=== PATIENT | male | born 1950 | race American Indian/Alaskan Native ===

== ENCOUNTER 2018-06-22 11:19 | Emergency (ER) | payer MEDICARE, OTHER ==
--- NOTE | 2018-06-22 11:31 | Emergency Department Report ---
ED General Adult HPI - General Chief complaint: Tube Replacement Stated complaint: REPLACE RECTAL TUBE Time Seen by Provider: 06/22/18 11:30 Source: EMS Mode of arrival: Stretcher Limitations: Physical Limitation, Other - History of Present Illness Initial comments: Patient is a 7-year-old Male who is a care home patient at [facility] who presented today because of this large rectal tube. The patient is nonverbal and has no complaints at this time. Facility just needed to place the rectal to back for the patient - Related Data Previous Rx's Medication Instructions Recorded Last Taken Type clonazePAM [KlonoPIN] 0.5 mg PO HS #7 tablet 02/13/18 Unknown Rx Bisacodyl [Dulcolax suppos] 10 mg NE QDAY PRN #7 supp.rect 05/12/18 Unknown Rx Clopidogrel Bisulfate [Plavix] 75 mg PO DAILY #20 tablet 05/12/18 Unknown Rx Ferrous Sulfate [Iron] 325 mg PO BID #30 tablet 05/12/18 Unknown Rx Finasteride [Proscar] 5 mg PO DAILY #30 tablet 05/12/18 Unknown Rx Mirtazapine [Remeron] 15 mg PO HS #30 tab.rapdis 05/12/18 Unknown Rx QUEtiapine [SEROquel] 50 mg PO BID #60 tablet 05/12/18 Unknown Rx Rivastigmine [Exelon Patch 4.6 mg TD DAILY #30 patch 05/12/18 Unknown Rx 4.6mg/24hr] Sertraline [Zoloft] 100 mg PO DAILY #30 tablet 05/12/18 Unknown Rx Tamsulosin [Flomax] 0.4 mg PO DAILY #30 capsule 05/12/18 Unknown Rx amLODIPine [Norvasc] 10 mg PO DAILY #30 tablet 05/12/18 Unknown Rx clonazePAM [KlonoPIN] 0.5 mg PO QHS PRN #30 tablet 05/12/18 Unknown Rx hydrALAZINE [Apresoline TAB] 50 mg PO TID #60 tab 05/12/18 Unknown Rx oxyCODONE /ACETAMINOPHEN [Percocet 1 tab PO Q6H PRN #20 tablet 05/12/18 Unknown Rx 5/325 mg] AtorvaSTATin [Lipitor] 40 mg PO QHS #30 tablet 06/20/18 Unknown Rx Furosemide [Lasix] 20 mg PO QDAY #7 tablet 06/20/18 Unknown Rx Allergies Allergy/AdvReac Type Severity Reaction Status Date / Time No Known Allergies Allergy Unverified 01/24/18 15:31 ED Review of Systems ROS: Stated complaint: REPLACE RECTAL TUBE Other details as noted in HPI Comment: All other systems reviewed and negative ED Past Medical Hx - Past Medical History Previous Medical History?: Yes Hx Hypertension: Yes Hx CVA: Yes Hx Dementia: Yes Additional medical history: PVD, anxiety, Benign prostatic hyperplasia, Major deprssive disorder, - Surgical History Past Surgical History?: Yes Additional Surgical History: Right AKA - Social History Smoking Status: Unknown if ever smoked Substance Use Type: None - Medications Home Medications: Home Medications Medication Instructions Recorded Confirmed Last Taken Type clonazePAM [KlonoPIN] 0.5 mg PO HS #7 tablet 02/13/18 05/29/18 Unknown Rx Bisacodyl [Dulcolax suppos] 10 mg NE QDAY PRN #7 supp.rect 05/12/18 05/29/18 Unknown Rx Clopidogrel Bisulfate [Plavix] 75 mg PO DAILY #20 tablet 05/12/18 05/29/18 Unknown Rx Ferrous Sulfate [Iron] 325 mg PO BID #30 tablet 05/12/18 05/29/18 Unknown Rx Finasteride [Proscar] 5 mg PO DAILY #30 tablet 05/12/18 05/29/18 Unknown Rx Mirtazapine [Remeron] 15 mg PO HS #30 tab.rapdis 05/12/18 05/29/18 Unknown Rx QUEtiapine [SEROquel] 50 mg PO BID #60 tablet 05/12/18 05/29/18 Unknown Rx Rivastigmine [Exelon Patch 4.6 mg TD DAILY #30 patch 05/12/18 05/29/18 Unknown Rx 4.6mg/24hr] Sertraline [Zoloft] 100 mg PO DAILY #30 tablet 05/12/18 05/29/18 Unknown Rx Tamsulosin [Flomax] 0.4 mg PO DAILY #30 capsule 05/12/18 05/29/18 Unknown Rx amLODIPine [Norvasc] 10 mg PO DAILY #30 tablet 05/12/18 05/29/18 Unknown Rx clonazePAM [KlonoPIN] 0.5 mg PO QHS PRN #30 tablet 05/12/18 05/29/18 Unknown Rx hydrALAZINE [Apresoline TAB] 50 mg PO TID #60 tab 05/12/18 05/29/18 Unknown Rx oxyCODONE /ACETAMINOPHEN [Percocet 1 tab PO Q6H PRN #20 tablet 05/12/18 Unknown Rx 5/325 mg] AtorvaSTATin [Lipitor] 40 mg PO QHS #30 tablet 06/20/18 Unknown Rx Furosemide [Lasix] 20 mg PO QDAY #7 tablet 06/20/18 Unknown Rx ED Physical Exam - General Limitations: Physical Limitation, Other General appearance: alert, in no apparent distress - Head Head exam: Present: atraumatic, normocephalic - Eye Eye exam: Present: normal appearance - Neck Neck exam: Present: normal inspection - Respiratory Respiratory exam: Present: normal lung sounds bilaterally. Absent: respiratory distress - Cardiovascular Cardiovascular Exam: Present: regular rate, normal rhythm. Absent: systolic murmur, diastolic murmur, rubs, gallop - GI/Abdominal GI/Abdominal exam: Present: soft, normal bowel sounds. Absent: distended, tenderness, guarding - Rectal Rectal exam: Present: deferred - Skin Skin exam: Present: warm, dry, intact, normal color. Absent: rash ED Course Vital Signs 06/22/18 11:22 Temperature 97.3 F L Pulse Rate 70 Respiratory 16 Rate Blood Pressure 130/73 O2 Sat by Pulse 100 Oximetry ED Medical Decision Making - Medical Decision Making Rectal tube was replaced by the nursing staff the patient be discharged back to care home. Critical care attestation.: If time is entered above; I have spent that time in minutes in the direct care of this critically ill patient, excluding procedure time. ED Disposition Clinical Impression: Fecal incontinence Qualifiers: Fecal incontinence type: unspecified Qualified Code(s): R15.9 - Full incontinence of feces Disposition: DC-01 TO HOME OR SELFCARE Is pt being admited?: No Does the pt Need Aspirin: No Condition: Stable Referrals: PRIMARY CARE, [Primary Care Provider] - 3-5 Days
[2018-06-22 11:33] VITALS: BP 130/73
== END 2018-06-22 13:20 | disposition home or self-care (01) ==
LOC: ED 11:19
DX: R15.9 Full incontinence of feces (principal); I10 Essential (primary) hypertension; F03.90 Unspecified dementia, unspecified severity, without behavioral disturbance, psychotic disturbance, mood disturbance, and anxiety; F41.9 Anxiety disorder, unspecified; F32.9 Major depressive disorder, single episode, unspecified; N40.0 Benign prostatic hyperplasia without lower urinary tract symptoms; Z86.73 Personal history of transient ischemic attack (TIA), and cerebral infarction without residual deficits
CPT/HCPCS: 99283